=== PATIENT | male | born 1970 | race Caucasian/White ===

== ENCOUNTER 2025-01-07 10:55 | Emergency (ER) | payer BC ==
[~2025-01-07] VITALS: Ht 182.9 cm; Wt 85.3 kg
[2025-01-07] MEDS ORDERED: ADDERALL 15 MG15 MG (11:13)
[2025-01-07] MEDS ORDERED: ZEPBOUND5 MG/0.5 M (11:13)
[2025-01-07] MEDS ORDERED: SODIUM CHLORIDE 0.9% 100 ML ONE (12:01)
[2025-01-07] MEDS ORDERED: IOPAMIDOL 370 MG/ML 100 ML INFUS..BTL INJ ONE (12:01)
[2025-01-07] MEDS ORDERED: TRAZODONE HCL50 MG PO (14:33)
[2025-01-07 14:52] VITALS: PULSE 82; RESP 18; TEMP 97.7; O2SAT 99
== END 2025-01-07 14:46 | disposition home or self-care (01) ==
LOC: FSED 11:01
DX: G45.4 Transient global amnesia (principal); G47.00 Insomnia, unspecified; F98.8 Other specified behavioral and emotional disorders with onset usually occurring in childhood and adolescence; M54.9 Dorsalgia, unspecified; G89.29 Other chronic pain
CPT/HCPCS: 70496; 70498; 80048; 81003; 82553; 84484; 85025; 85379; 93005; 99284; J7050; Q9967